=== PATIENT | male | born 1955 | race African-American/Black ===

== ENCOUNTER 2020-10-21 08:36 | Day surgery (SDC) | payer MEDICARE, OTHER ==
[~2020-10-21] VITALS: Ht 185.4 cm; Wt 104.5 kg
[2020-10-21 09:29] LABS: ANION GAP 12.1 mmol/L (8-16); CARBON DIOXIDE 24.9 mmol/L (21.0-32.0); CREATININE - SERUM 1.1 mg/dL (0.6-1.3)
[2020-10-21] MEDS ORDERED: PRAVASTATIN SOD10 MG PO (09:37)
[2020-10-21] MEDS ORDERED: NORVASC5 MG PO (09:37)
[2020-10-21] MEDS ORDERED: RANEXA500 MG PO (09:38)
[2020-10-21 09:42] VITALS: BP 156/84; Ht 185.4 cm; Wt 104.5 kg
[2020-10-21 10:46] LABS: BASOPHILS 0.8 % (0-2); EOSINOPHILS 1.2 % (0-7); HEMATOCRIT 38.2 % (42.0-54.0); HEMOGLOBIN 12.6 g/dL (13.5-17.5); LYMPHOCYTES 34.9 % (15-50); MCH 34.2 pg (26.0-34.0); MCHC 32.9 g/dL (31.0-37.0); MEAN PLATELET VOLUME 8.1 fL (7.4-10.4); MONOCYTES 5.2 % (2-11); NEUTROPHILS 57.9 % (40-80); RBC 3.68 10x6/uL (4.20-6.10); RDW 13.4 % (11.5-14.5); WBC 5.7 10x3/uL (4.8-10.8)
[2020-10-21 10:50] LABS: PLATELET COUNT 243 10x3/uL (130-400)
--- NOTE | 2020-10-21 16:40 | NUR ---
F/U APPT MADE FOR PT TO RTC DC TEACHING COMPLETE TO PT, VERBALIZED UNDERSTANDING. 1651 DR SIU AT BEDSIDE 1705 PIV REMOVED, CATHETER INTACT, PT DRESSING. 1727 PT DC'D VIA WC ACCOMPANIED BY THIS NURSE WITH ALL BELONGINGS AND DC PACKET TO POV. FAMILY MEMBER DRIVING.
== END 2020-10-21 17:27 | disposition home or self-care (01) ==
LOC: D.OPS 08:36
PROVIDERS: Anesthesiology; ATTEND Surgery
DX: K21.00 Gastro-esophageal reflux disease with esophagitis, without bleeding (principal); K63.5 Polyp of colon; Z12.11 Encounter for screening for malignant neoplasm of colon